=== PATIENT | male | born 1950 | race African-American/Black ===

== ENCOUNTER 2017-04-23 14:15 | Outpatient (RCR) | payer BC, MEDICARE ==
[2017-05-13] MEDS ORDERED: ASPIRIN 81M81 MG/TA2 PO (09:57)
[2017-05-13] MEDS ORDERED: MULTI VITAMINS1 TAB PO (09:58)
[2017-05-13] MEDS ORDERED: GLUCOSAMINE & C1 TAB PO (09:58)
[2017-05-13] MEDS ORDERED: VITAMIN D31000 I1 PO (09:59)
== END 2017-06-16 | disposition home or self-care (01) ==
LOC: WSST
DX: R41.3 Other amnesia (principal)
CPT/HCPCS: G9168-GN; G9169-GN; G9170-GN

== ENCOUNTER 2017-05-13 09:39 | Day surgery (SDC) | payer BC, MEDICARE, OTHER ==
[~2017-05-13] VITALS: Ht 170.2 cm; Wt 94.2 kg
[2017-05-13 09:53] VITALS: BP 116/93; PULSE 60; TEMP 97.7
[2017-05-13] MEDS ORDERED: ASPIRIN 81M81 MG/TA2 PO (09:57)
[2017-05-13] MEDS ORDERED: MULTI VITAMINS1 TAB PO (09:58)
[2017-05-13] MEDS ORDERED: GLUCOSAMINE & C1 TAB PO (09:58)
[2017-05-13] MEDS ORDERED: VITAMIN D31000 I1 PO (09:59)
[2017-05-13 12:40] VITALS: BP 136/98; PULSE 64; TEMP 98.1
[2017-05-13 12:55] VITALS: BP 128/92; PULSE 75
[2017-05-13 13:10] VITALS: BP 128/98; PULSE 68
== END 2017-05-13 13:25 | disposition home or self-care (01) ==
LOC: SDCO 09:39
DX: Z12.11 Encounter for screening for malignant neoplasm of colon (principal); K64.0 First degree hemorrhoids; Z86.010 Personal history of colon polyps; Z79.82 Long term (current) use of aspirin
CPT/HCPCS: OP; J2250; J3010; J7030

== ENCOUNTER 2017-12-19 00:20 | Emergency (ER) | payer BC, MEDICARE, OTHER ==
[~2017-12-19] VITALS: Ht 170.2 cm; Wt 90.9 kg
[~2017-12-19 00:20] MED LIST: ASPIRIN 81M81 MG/TA2 PO; GLUCOSAMINE & C1 TAB PO; MULTI VITAMINS1 TAB PO; VITAMIN D31000 I1 PO
[2017-12-19 00:24] VITALS: BP 140/82; TEMP 98.1
[2017-12-19 01:33] LABS: BASO % 0.4 % (0.0-2.0); EOS # 0.2 (0.0-0.7); EOS % 2.1 % (0-4.0); GRAN # 4.3 (1.4-6.5); GRAN % 51.9 % (42.2-75.2); HEMATOCRIT 46.2 % (42.0-52.0); LYMPH # 3.1 (1.2-3.4); LYMPH % 37.9 % (20.0-51.0); MEAN CELL VOLUME 78 fl (80.0-100.0); MEAN CORPUSCULAR HEMOGLOBIN 25 pg (27.0-31.0); MEAN CORPUSCULAR HGB CONC 33 g/dl (33.0-37.0); MEAN PLATELET VOLUME 10.5 fl (7.4-10.4); MONO # 0.6 (0.1-0.6); MONO % 7.5 % (1.7-9.3); PLATELET COUNT 168 K/mm3 (130-400); RED BLOOD COUNT 5.93 M/mm3 (4.20-5.60); REDCELL DISTRIBUTION WIDTH-CV 14.9 % (11.5-14.5)
[2017-12-19] MEDS ORDERED: PREDNISONE10 MG PO (02:03)
[2017-12-19] MEDS ORDERED: INDOCIN50 MG PO (02:03)
[2017-12-19 02:04] LABS: BILIRUBIN,TOTAL 0.3 mg/dL (0.0-1.0); C-REACTIVE PROTEIN 0.7 mg/dL (0.0-0.9); CALCIUM 8.6 mg/dL (8.4-10.2); CREATININE, serum 1.31 mg/dL (0.66-1.25); POTASSIUM 4.1 mmol/L (3.4-5.0); TOTAL PROTEIN 7.7 gm/dL (6.4-8.2)
[2017-12-19 02:06] LABS: ERYTHROCYTE SEDIMENTATION RATE 1 mm/hr (0-30)
[2017-12-19 02:15] VITALS: PULSE 80
== END 2017-12-19 02:16 | disposition home or self-care (01) ==
LOC: COL.ER 00:20
PROVIDERS: Physician Assistant
DX: M10.9 Gout, unspecified (principal); Z79.82 Long term (current) use of aspirin
CPT/HCPCS: J7512

== ENCOUNTER 2020-01-21 13:20 | Emergency (ER) | payer BC, MEDICARE, OTHER ==
[~2020-01-21] VITALS: Ht 170.2 cm; Wt 88.6 kg
[~2020-01-21 13:20] MED LIST changes: +INDOCIN50 MG PO; +PREDNISONE10 MG PO
[2020-01-21 13:40] VITALS: TEMP 98.6
[2020-01-21 16:03] LABS: BASO % 0.3 % (0.0-2.0); EOS % 0.1 % (0-4.0); GRAN # 8.9 (1.4-6.5); GRAN % 80.8 % (42.2-75.2); HEMATOCRIT 51.5 % (42.0-52.0); HEMOGLOBIN 16.6 g/dl (13.5-18.0); LYMPH # 1.4 (1.2-3.4); MEAN CELL VOLUME 78 fl (80.0-100.0); MEAN CORPUSCULAR HEMOGLOBIN 25 pg (27.0-31.0); MEAN CORPUSCULAR HGB CONC 32 g/dl (33.0-37.0); MEAN PLATELET VOLUME 10.4 fl (7.4-10.4); MONO # 0.6 (0.1-0.6); MONO % 5.6 % (1.7-9.3); PLATELET COUNT 186 K/mm3 (130-400); RED BLOOD COUNT 6.63 M/mm3 (4.20-5.60); REDCELL DISTRIBUTION WIDTH-CV 15.1 % (11.5-14.5)
[2020-01-21 16:16] LABS: ALANINE AMINOTRANSFERASE 44 U/L (4-49); ALBUMIN 4.8 gm/dL (3.5-5.0); ALKALINE PHOSPHATASE 90 U/L (50-136); ANION GAP 8 mmol/L (7-16); AST,SGOT 43 U/L (15-37); BILIRUBIN,TOTAL 0.9 mg/dL (0.0-1.0); BLOOD UREA NITROGEN 23 mg/dL (9-20); CALCIUM 9.4 mg/dL (8.4-10.2); CARBON DIOXIDE 26 mmol/L (22-30); CHLORIDE 102 mmol/L (98-107); CREATININE, serum 1.64 (0.66-1.25); GLUCOSE 110 mg/dL (74-106); POTASSIUM 4.5 mmol/L (3.4-5.0); SODIUM 137 mmol/L (137-145); TOTAL PROTEIN 8.7 gm/dL (6.4-8.2)
[2020-01-21 16:18] LABS: C-REACTIVE PROTEIN < 0.5 mg/dL (0.0-0.9)
[2020-01-21 16:55] LABS: COLLECTION METHOD CLEAN CATCH
[2020-01-21 17:04] LABS: BUDDING YEAST Present /hpf; MUCOUS Present /lpf; PH 5 (5-8); SQUAMOUS EPITHELIAL None Seen /hpf; URINE APPEARANCE Cloudy; URINE BACTERIA None Seen /hpf; URINE BILIRUBIN Negative (NEGATIVE); URINE BLOOD 3+ (NEGATIVE); URINE COLOR Yellow; URINE GLUCOSE Negative (NEGATIVE); URINE KETONE Negative (NEGATIVE); URINE LEUKOCYTE ESTERASE Negative (NEGATIVE); URINE NITRATE Negative (NEGATIVE); URINE PROTEIN(semi-quant) 1+ (NEGATIVE); URINE RBC >50 /hpf; URINE UROBILINOGEN Negative (NEGATIVE)
[2020-01-21] MEDS ORDERED: NORCO 325 MG-51 TAB PO (17:17)
[2020-01-21 18:02] VITALS: BP 132/98; PULSE 80
== END 2020-01-21 17:58 | disposition home or self-care (01) ==
LOC: COL.ER 13:20
PROVIDERS: Emergency Medicine
DX: N20.0 Calculus of kidney (principal); Z88.0 Allergy status to penicillin; Z87.442 Personal history of urinary calculi; Z79.52 Long term (current) use of systemic steroids; Z79.82 Long term (current) use of aspirin
CPT/HCPCS: J2405; J3010; J7030

== ENCOUNTER 2020-03-13 09:02 | Inpatient (IN) | payer BC, MEDICARE, OTHER ==
[~2020-03-13] VITALS: Ht 170.2 cm; Wt 94.8 kg
[~2020-03-13 09:02] MED LIST changes: +NORCO 325 MG-51 TAB PO
[2020-03-28 10:17] LABS: HEMATOCRIT 50.1 % (42.0-52.0); HEMOGLOBIN 15.9 g/dl (13.5-18.0); MEAN CELL VOLUME 79 fl (80.0-100.0); MEAN CORPUSCULAR HEMOGLOBIN 25 pg (27.0-31.0); MEAN CORPUSCULAR HGB CONC 32 g/dl (33.0-37.0); MEAN PLATELET VOLUME 10.7 fl (7.4-10.4); PLATELET COUNT 166 K/mm3 (130-400); RED BLOOD COUNT 6.33 M/mm3 (4.20-5.60); REDCELL DISTRIBUTION WIDTH-CV 14.6 % (11.5-14.5)
[2020-03-28 10:21] LABS: ALBUMIN 4.7 gm/dL (3.5-5.0); BILIRUBIN,TOTAL 0.6 mg/dL (0.0-1.0); CALCIUM 9.2 mg/dL (8.4-10.2); CREATININE, serum 1.5 (0.66-1.25); POTASSIUM 4.3 mmol/L (3.4-5.0); TOTAL PROTEIN 8.7 gm/dL (6.4-8.2)
[2020-03-29] VITALS (11 sets, daily range): BP systolic 92–146; BP diastolic 70–93; PULSE 51–85; TEMP 97.9–98.8
--- NOTE | 2020-03-29 06:30 | NUR ---
PATIENT AMBULATED INTO SDC UNIT WITH STEADY GAIT. PATIENT ALERT AND ORIENTED X4. CONSENT EXPLAINED, QUESTIONS ANSWERED AND PATIENT SIGNED. LUNGS CLEAR BUT BREATH SOUNDS SLIGHTLY DIMMINISHED. BOWEL SOUNDS HEARD X 4. HEART S1,S2 AND REGULAR. PEDAL PULSES +2. PATIENT CHANGES INTO GOWN. CALL LIGHT EXPLAINED.
[2020-03-29] MEDS ORDERED: VITAMINC500CH (12:12)
[2020-03-29] MEDS ORDERED: VOLTAREN 75 DR75 MG PO (12:14)
--- NOTE | 2020-03-29 12:45 | NUR ---
Pt arrived to floor at this time via bed with PACU staff. Pt is groggy but able to arouse easily and is conversing with staff. 7 lap sites are WAYNE and WA. Berto drain draining sanguinous fluid to bulb suction. small drainage on drain site. IVF to LH. Pt denies pain. Requesting ice chips, will provide. Will continue to monitor.
--- NOTE | 2020-03-29 16:51 | NUR ---
Pt doing well, VSS, off post op checks. ABD sites are CDI, cecelia drain still continues to drain consistently with SS drainaige. PRN pain meds given. Discussed pt status with son per pt consent. Will continue to monitor.
--- NOTE | 2020-03-29 18:19 | NUR ---
Pt doing well, has more drainage to dressing on ABD where Berto drain dressing is. All other lap sites are well approximated. PRN pain meds given per request and pt states they managed well. Denies needs, will give bedside shift report to nightshift nurse who will resume care.
--- NOTE | 2020-03-29 21:00 | NUR ---
PT RESTING IN BED. A&O. IVF'S COMPLETED. INT TO LT WRIST AT THIS TIME. REMAINS ON BEDREST ORDERED. ENSURE ОЛЕГ DRAIN FUNCTIONING PROPERLY. SEE OUTPUT RECORD. ERNESTINE TO PAT. VERY GOOD UO. PT HUNGRY- PT EATING SANDWICH. BS PRESENT. CALL LIGHT IN REACH.
[2020-03-30 04:07] VITALS: BP 120/76; PULSE 77; TEMP 98.2
--- NOTE | 2020-03-30 07:08 | NUR ---
Patient lying in bed with eyes open watching TV. Alert and oriented x4. Rates pain to abd 3/10, tolerable at this time. Abd lap sites x7 with all edges well approximated, no redness/swelling/discharge, swiftset all intact. ОЛЕГ drain compressed, dressing at site with bloody discharge noted. Wolf to dependent drainage with clear yellow urine. Patient says that the procedure required more than what was expected and he will be in the hospital a couple days and he is okay with this. Denies further needs at this time.
[2020-03-30 07:28] LABS: BASO % 0.1 % (0.0-2.0); EOS % 0.1 % (0-4.0); GRAN # 9.3 (1.4-6.5); GRAN % 75.7 % (42.2-75.2); HEMATOCRIT 44.8 % (42.0-52.0); HEMOGLOBIN 14.5 g/dl (13.5-18.0); LYMPH % 15.9 % (20.0-51.0); MEAN CELL VOLUME 78 fl (80.0-100.0); MEAN CORPUSCULAR HEMOGLOBIN 25 pg (27.0-31.0); MEAN CORPUSCULAR HGB CONC 32 g/dl (33.0-37.0); MEAN PLATELET VOLUME 10.8 fl (7.4-10.4); PLATELET COUNT 160 K/mm3 (130-400); RED BLOOD COUNT 5.75 M/mm3 (4.20-5.60); REDCELL DISTRIBUTION WIDTH-CV 14.7 % (11.5-14.5)
[2020-03-30 07:46] LABS: CALCIUM 8.6 mg/dL (8.4-10.2); CREATININE, serum 1.82 (0.66-1.25); POTASSIUM 4.6 mmol/L (3.4-5.0)
[2020-03-30 08:08] VITALS: BP 136/74; PULSE 65; TEMP 98.2
--- NOTE | 2020-03-30 08:54 | NUR ---
Lying in bed still finishing clear liquid breakfast. Discuss process for removing catheter and also changing dressing to ОЛЕГ drain. Kitty care provided. Removed 9ml of saline from catheter balloon. Catheter pulled at this time, all intact. Patient tolerates without difficulty. Remove dressing from ОЛЕГ site, saturated with blood. Site cleaned with alcohol pads. Apply 4 drain sponges and reinforce with tegaderm. Patient will complete breakfast and then we will get up for a walk. Urinal was provided to the patient.
--- NOTE | 2020-03-30 10:14 | NUR ---
Patient sits on edge of bed. Denies dizziness but was a little lightheaded which subsided. Patient up to bathroom. Voids clear yellow urine. Ambulates in halls with standby assist of one. Gait slow but steady. Denies dizziness or feeling lightheaded. Explain that he can get up and ambulate in halls as he would like with his mask on. Patient returns to room and sits in chair at this time. Denies additional needs.
--- NOTE | 2020-03-30 11:08 | NUR ---
Patient up ambulating in halls on own. Gait slow but steady. Denies needs or concerns.
--- NOTE | 2020-03-30 11:29 | NUR ---
Lying in bed with eyes open watching TV and texting on phone. Rates pain 3/10 in abd, tolerable at this time. Patient denies needs or concerns at this time.
--- NOTE | 2020-03-30 12:19 | NUR ---
Patient ambulating in halls. Gait steady. Denies needs.
[2020-03-30 12:44] VITALS: BP 134/73; PULSE 69; TEMP 98.2
--- NOTE | 2020-03-30 13:49 | NUR ---
Gang Mower Operator met with patient to discuss discharge planning. Patient lives in [place] with his , Marysol (ph#[phone]) and sees Dr. Cason for primary care. 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 Patient obtains medications from [facility] with no difficulties. Patient does not use any DME and is independent with ADLS. Patient does not have Advance Directives but was interested in obtaining DPOA-HC form. SW provided. Patient plans to return home with his upon discharge. SW contacted patient's , Marysol to check in and review discharge plan. Marysol had no concerns about patient returning home and reported that she feels patient has had good care at this hospital. Marysol also stated she feels like staff are keeping her well informed. SW will continue to follow as needed.
[2020-03-30 16:14] VITALS: BP 132/79; PULSE 73; TEMP 98.2
--- NOTE | 2020-03-30 16:20 | NUR ---
Rating pain 5/10 in abd and would like pain medication. Patient medication administered as prescribed. Patient voiding without difficulty. Drained ОЛЕГ at this time. Patient says that he will get up here shortly to go for a walk. Denies additional needs.
--- NOTE | 2020-03-30 17:41 | NUR ---
Lying in bed watching TV. Pain has decreased to 2/10. Says that he is doing good at this time and denies additional needs.
[2020-03-30 20:28] VITALS: BP 127/75; PULSE 72; TEMP 98.8
--- NOTE | 2020-03-30 21:00 | NUR ---
PT VERY PLEASEAT. UP WALKING IN HALLS EARLIER WITH MASK ON. PAIN WELL CONTROLLED. SEE SHIFT ASSESSMENT. CALL LIGHT IN ROOM. INDEPENDENT PRN
[2020-03-30 23:47] VITALS: BP 111/73; PULSE 73; TEMP 98.6
--- NOTE | 2020-03-31 01:00 | NUR ---
PT SITTING ON SIDE OF BED. BLOODY DRG FROM ОЛЕГ DRAIN SITE. CHANGED DRGS AND GOWN. ENC PT TO TAKE PAIN MED FOR INCREASED PAIN. PT AGREED. SEE MAR FOR OXYCODONE GIVEN. PT RELATES HE HAS BEEN PASSING FLATUS. ENC TO AM IN [place]. PT VOIDING W/O DIFFICULTY. NO FURTHER NEEDS.
[2020-03-31 04:02] VITALS: BP 121/69; PULSE 76; TEMP 98.1
--- NOTE | 2020-03-31 05:37 | NUR ---
OBTAINED ОЛЕГ DRAINAGE AND SENT TO LAB.
[2020-03-31 07:09] LABS: CALCIUM 8.5 mg/dL (8.4-10.2); CREATININE, serum 1.78 (0.66-1.25); POTASSIUM 4.6 mmol/L (3.4-5.0)
[2020-03-31 08:28] VITALS: BP 113/71; PULSE 80; TEMP 98
--- NOTE | 2020-03-31 09:30 | NUR ---
rounded. Discharge orders obtained. Patient ready to go. He called his . We reviewed all discharge instructions. Oswaldo drain DC and he tolerated well. Pain managed with medication as ordered. Script for rosario & jannet sent with patient. Home med list reviewed. Medication safety discussed. Int dc. He is aware of follow up appt. Signs & symptoms & when to call doctor and office number provided. Kassi ambulated out with all belongings.
== END 2020-03-31 09:30 | disposition home or self-care (01) | DRG 658 ==
LOC: INPTSU 03-29 06:00 → SURG 03-29 06:00
PROVIDERS: ADMIT Urology
PROC: 0TD Urinary System, Extraction (ICD-10-PCS; 2020-03-29)
PROC: 8E0W4CZ Robotic Assisted Procedure of Trunk Region, Percutaneous Endoscopic Approach (ICD-10-PCS; 2020-03-29)
PROC: 0TB04ZZ Excision of Right Kidney, Percutaneous Endoscopic Approach (ICD-10-PCS; principal; 2020-03-29 08:00)
DX: C64.1 Malignant neoplasm of right kidney, except renal pelvis (principal); Z20.828 Contact with and (suspected) exposure to other viral communicable diseases
CPT/HCPCS: A4314; J0360; J0690; J1100; J1885; J2250; J2370; J2405; J2704; J2795; J3010; J7120

== ENCOUNTER → 2020-10-04 | Outpatient (CLI) | payer BC, MEDICARE, OTHER ==
[~2020-10-04] MED LIST changes: +VITAMINC500CH; +VOLTAREN 75 DR75 MG PO
== END ==
LOC: COL.RAD 10:09
DX: Z85.528 Personal history of other malignant neoplasm of kidney (principal)

== ENCOUNTER → 2021-10-17 | Outpatient (CLI) | payer BC, MEDICARE, OTHER | LOC: COL.RAD 13:50 | DX: M47.816 Spondylosis without myelopathy or radiculopathy, lumbar region (principal); M47.817 Spondylosis without myelopathy or radiculopathy, lumbosacral region; M41.9 Scoliosis, unspecified; M79.604 Pain in right leg; M79.671 Pain in right foot; Z87.39 Personal history of other diseases of the musculoskeletal system and connective tissue; G89.29 Other chronic pain ==